=== PATIENT | female | born 1965 | race Two or more races ===

== ENCOUNTER 2019-05-19 08:08 | Emergency (ER) | payer OTHER ==
[~2019-05-19] VITALS: Ht 162.6 cm; Wt 90.0 kg
[~2019-05-19 08:08] MED LIST: AMLO5TAB88 PO
[2019-05-19] MEDS ORDERED: SODIUM CHLORIDE 0.9% 1,000 ML IV ONE (08:38)
[2019-05-19] MEDS ORDERED: KETOROLAC 30MG/ML VIAL IV STA (08:38)
[2019-05-19] MEDS ORDERED: METOCLOPRAMIDE HCL 10MG/2ML VIAL IV ONE (08:45)
[2019-05-19 09:04] LABS: BASOPHILS % 0.4 % (0.0-2.0); EOSINOPHILS % 0.2 % (0.0-5.0); HEMATOCRIT. 37.3 % (36.0-48.0); HEMOGLOBIN. 12.8 g/dL (12.0-16.0); LYMPHOCYTES % 21.9 % (20.0-50.0); MEAN CORPUSCULAR HEMOGLOBIN 31.8 pg (28.0-32.0); MEAN CORPUSCULAR VOLUME 92.8 fL (81.0-99.0); MEAN PLATELET VOLUME 8.1 fl (7.4-10.4); MONOCYTES % 5.9 % (2.0-8.0); NEUTROPHILS % 71.6 % (40.0-76.0); PLATELET 224 x1000/uL (130-400); RED BLOOD CELL COUNT 4.02 mill/uL (4.2-5.4); RED CELL DISTRIBUTION WIDTH 14.3 % (11.6-14.6)
[2019-05-19 09:10] LABS: CHLORIDE 108 mEq/L (98-107)
[2019-05-19 09:13] LABS: PROTHROMBIN TIME 9.9 sec (9.6-11.0)
[2019-05-19 10:30] VITALS: BP 144/65
== END 2019-05-19 11:02 | disposition home or self-care (01) ==
LOC: ER 08:08
DX: R51 Headache (principal); R11.2 Nausea with vomiting, unspecified; H53.8 Other visual disturbances; R42 Dizziness and giddiness
CPT/HCPCS: 36415; 80053; 85025; 85610; 96361; 96374; 96375; 99283; J1885; J2765; J7030

== ENCOUNTER 2021-04-30 08:49 | Emergency (ER) | payer OTHER ==
[~2021-04-30] VITALS: Ht 152.4 cm; Wt 89.0 kg
[2021-04-30 12:08] LABS: CHLORIDE 101 mEq/L (98-107)
[2021-04-30] MEDS ORDERED: POTA-79 MT (13:12)
[2021-04-30] MEDS ORDERED: POTASSIUM CHLORIDE 20MEQ TABLET SR PO ONE (13:30)
[2021-04-30 15:03] VITALS: BP 132/70
== END 2021-04-30 15:04 | disposition home or self-care (01) ==
LOC: ER 08:49
DX: E87.6 Hypokalemia (principal); I10 Essential (primary) hypertension; R00.1 Bradycardia, unspecified
CPT/HCPCS: 36415; 80048; 83735; 93005; 99284